=== PATIENT | male | born 1975 | race Caucasian/White ===

== ENCOUNTER 2017-02-14 18:01 | Observation (INO) | payer OTHER ==
[2017-02-14] MEDS ORDERED: Aspirin Low Dose CHEW TAB* 81 MG PO ONE (18:15)
[2017-02-14 18:44] LABS: Hematocrit 47 % (42-52); Hemoglobin 15.7 g/dl (14.0-18.0); Mean Corpuscular HGB Conc 34 g/dl (31-36); Mean Corpuscular Hemoglobin 30 pg (27-31); Mean Corpuscular Volume 88 fL (80-94); Mean Platelet Volume 8 um3 (7.4-10.4); Red Blood Count 5.27 10^6/ul (4.0-5.4); Red Cell Distribution Width 13 % (10.5-15); White Blood Count 9.5 10^3/ul (3.5-10.8)
[2017-02-14 19:07] LABS: Albumin 4.5 g/dL (3.2-5.2); BUN/Creatinine Ratio 13.8 (8-20); Calcium 9.3 mg/dL (8.6-10.3); EGFR African American 124.4 (>60); EGFR Non-African American 96.7 (>60); Globulin 2.9 g/dL (2-4); Potassium 3.8 mmol/L (3.5-5.0); Total Bilirubin 1.4 mg/dL (0.2-1.0); Total Protein 7.4 g/dL (6.4-8.9)
[2017-02-15] MEDS ORDERED: Acetaminophen TAB* 325 MG PO PRN (00:05)
[2017-02-15] MEDS ORDERED: Al Hydrox/Mg Hydrox/Simet LIQ* 30 ML UDC PO PRN (00:05)
[2017-02-15] MEDS ORDERED: Ondansetron INJ* 2 MG/ML VIAL IV PRN (00:05)
[2017-02-15] MEDS ORDERED: oxyCODONE/Acetamin 5/325 MG* TAB PO PRN (00:05)
[2017-02-15] MEDS ORDERED: Cyclobenzaprine TAB* 10 MG PO PRN (00:07)
[2017-02-15] MEDS ORDERED: Calcium Carbonate CHEW TAB* 500 MG (TUMS) PO PRN (00:07)
[2017-02-15 01:16] LABS: Troponin I 0.01 ng/mL (<0.04)
--- NOTE | 2017-02-15 01:26 | HP ---
CC: Eran Abraham MD * HISTORY AND PHYSICAL: DATE OF ADMISSION: 02/15/17 TIME OF EVALUATION: 0000. PRIMARY CARE PHYSICIAN: Eran Abraham MD CHIEF COMPLAINT: Chest pain. HISTORY OF PRESENT ILLNESS: This is a 41-year-old male with a past medical history of GERD, Dsouza's esophagus, and hiatal hernia, who presents to the emergency room, was having chest discomfort for the past week. He states that it comes and goes, nothing seems to make it better or worse and the pattern is unpredictable, does not seem to be associated with after eating. He states over the past few days, he has become more short of breath and it does not seem to come on with exertion either. He denies any upper respiratory symptoms, although he states he does have a slightly dry and sore throat. He was nauseous a few days ago, no vomiting, no diarrhea. No changes in his weight. He does state he had a stress test 7 years ago on a treadmill and had a hard time with that. He denies any worsening heart burn, he states that he changed his diet and taking supplements recently to help with his GERD symptoms and that has improved significantly. He did stop taking all his medications over the past week, because he has not been feeling well including his pantoprazole. Otherwise, remaining review of systems is negative. In the emergency room, the patient had labs and imaging and was concerned for acute coronary syndrome evaluation and was referred to the hospitalist service for further evaluation. The patient is now chest pain free. PAST MEDICAL HISTORY: 1. GERD. 2. Gastritis. 3. History of Dsouza's esophagus. 4. History of hiatal hernia. 5. History of peptic ulcer disease. 6. Chronic back pain. 7. History of laminectomy x3. 8. History of knee surgery. MEDICATIONS: Of note, the patient has not taken his medications for the past week. 1. Percocet 3 up to 5 times a day as needed for pain. 2. Gabapentin unclear on the mg, but he takes it 3 times a day. 3. Flexeril daily. 4. Pantoprazole. 5. Tums as needed. ALLERGIES: No known drug allergies. SOCIAL HISTORY: The patient lives at home with his and children. He is on disability. He quit smoking 7 years ago. At that time, he smoked a pack and a half a day for about 20 years. No alcohol use. No illicit drug use. His healthcare proxy is his , Alejandra. FAMILY HISTORY: His mother is alive, had bypass x2 starting at age 50. His father is alive and healthy. REVIEW OF SYSTEMS: Fourteen-point review of systems as mentioned, pertinent positives and negatives as mentioned in the HPI, otherwise negative. PHYSICAL EXAMINATION GENERAL: No acute distress, resting comfortably with his at the bedside. VITAL SIGNS: Temp 98.1, pulse rate 70, respiratory rate 16, oxygen saturation 98% on room air, blood pressure 128/87. HEENT: Head normocephalic. Pupils are equal and reactive, anicteric. Oropharynx: Mucous membranes are moist. Slight posterior erythema, no exudates. NECK: Supple. No lymphadenopathy. RESPIRATORY: Diminished breath sounds. No wheezes, rhonchi, or rales. CARDIAC: Regular rate and rhythm. No murmurs, rubs, or gallops. ABDOMEN: Soft, nontender, nondistended. EXTREMITIES: No clubbing, cyanosis, or edema. +2 DPs. NEUROLOGIC: Alert and oriented x3. No focal neurologic deficits. DIAGNOSTIC STUDIES/LAB DATA: White count 9.5, hemoglobin 15.7, hematocrit 47, platelets 284,000. D-dimer is less than 200. Sodium 136, potassium 3.8, chloride 104, bicarb 25, BUN 12, creatinine 0.87, glucose 129. Total bili is 1.4. Troponin 0 x2. Radiographic data: EKG shows normal sinus rhythm. No prior EKG to compare to. ASSESSMENT AND PLAN: This is a 41-year-old male with past medical history of gastroesophageal reflux disease and remote smoking use, who presents to the emergency room with chest pain off and on for the past week. Chest pain. Assessment: Unlikely related to cardiac origin. He has been off his medications for the past week. He has tried to wean himself off his pantoprazole. He has significant gastroesophageal reflux history, could be most likely related to that, but not unreasonable to rule him out with his family history and remote smoking history. Plan: We will admit him to telemetry, trend troponins, obtain lipid panel, continue on baby aspirin, and do a nuclear stress test. The patient states that he would not be able to go on the treadmill due to his back pain. CHRONIC MEDICAL PROBLEMS: 1. We will resume his home medications as prescribed. 2. Diet: Place the patient n.p.o. for his stress test. 3. DVT prophylaxis. The patient scores moderate risk, place on heparin subcu t.i.d. 4. Code status: Full code. PATIENT TIME: Greater than 50 minutes was spent doing the history and physical , more than half the time was spent in direct patient contact. [id number]/[facility] #: [id number] MARIA ANTONIA
[2017-02-15] MEDS ORDERED: Heparin VIAL(*) 5000 UNITS/ML VIAL (FIVE THOUSAND) SUBCUT SCH (06:00)
[2017-02-15] MEDS ORDERED: Omeprazole CAP* 20 MG PO SCH (06:00)
[2017-02-15] MEDS ORDERED: Gabapentin CAP(*) 100 MG PO SCH (09:00)
[2017-02-15] MEDS ORDERED: Aspirin EC Low Dose* 81 MG TAB.EC PO SCH (09:00)
[2017-02-15] MEDS ORDERED: Regadenoson* 0.4 MG/5 ML SYRINGE ONE (09:23)
[2017-02-15] MEDS ORDERED: Aminophylline IV* 25 MG/ML 10 ML VIAL ONE (09:23)
--- NOTE | 2017-02-15 11:11 | RAD ---
INDICATION: Chest pain COMPARISON: None TECHNIQUE: A single day SPECT protocol was utilized. Rest images were acquired following the intravenous injection of 10.5 millicuries of technetium 99m tetrofosmin. Pharmacologic stress images were acquired following the intravenous administration of 25.9 millicuries of technetium 99m tetrofosmin. FINDINGS: There is subtle decreased activity in the anterior wall near the base of the heart with stress. A small ischemic defect is not excluded. There are no additional apparent defects or stress-induced or fixed nature. The cardiac chamber size is normal. There are no wall motion abnormalities. The ejection fraction is calculated at 66 percent during stress. IMPRESSION: SUSPECTED ISCHEMIC DEFECT ANTERIOR WALL. NORMAL WALL MOTION AND EJECTION FRACTION. ASSESSMENT: INTERMEDIATE-RISK Based on imaging criteria from ACC/AHA 2002 Guideline Update for the Management of Patients With Chronic Stable Angina Table 23. Noninvasive Risk Stratification.
--- NOTE | 2017-02-15 11:39 | PN ---
Subjective Date of Service: 02/15/17 Interval History: Mr. Carter is a 41 yo male with a PMH of GERD, gastritis, and Dsouza's esophagus who presented to the ED last evening with concern for chest pain that has been off and on for about one week. He states that it is "discomfort, not really pain." He reports associated left shoulder and arm numbness. He cannot find any specific pattern to the pain but does report some SOB with some of the episodes. He is still able to complete his ADLs. He notes that one episode followed an incident where he was yelling at his daughter and felt like it could be anxiety in that instance. He also report that his most recent EGD showed resolution of gastritis and Dsouza's esophagus. He has tried to control his GERD with diet and stopped his pantoprazole but states, "sometimes I still need Tums." Overnight and this AM, patient reports feeling fine, denying CP, SOB, n/v or other symptoms of concern. Following his stress test, he reports "chest discomfort" that is all over his chest and rather variable. He feels as if it could be musculoskeletal from having to lay with his arms above his head. No other complaints. Telemetry: SR 60s-70s Family History: Unchanged from Admission Social History: Unchanged from Admission Past Medical History: Unchanged from Admission Objective Active Medications: Acetaminophen (Tylenol Tab*) 650 mg PO Q4H PRN PRN Reason: FEVER/PAIN Al Hydrox/Mg Hydrox/Simethicone (Maalox Plus*) 30 ml PO Q6H PRN PRN Reason: INDIGESTION Aspirin (Aspirin Ec Low Dose*) 81 mg PO DAILY [facility] Last Admin: 02/15/17 09:14 Dose: 81 mg Calcium Carbonate (Tums*) 500 mg PO Q4H PRN PRN Reason: INDIGESTION Cyclobenzaprine HCl (Flexeril Tab*) 10 mg PO BID PRN PRN Reason: SPASMS - BACK Gabapentin (Neurontin Cap(*)) 200 mg PO TID [facility] Last Admin: 02/15/17 09:13 Dose: 200 mg Heparin Sodium (Porcine) (Heparin Vial(*)) 5,000 units SUBCUT Q8HR [facility] Last Admin: 02/15/17 06:32 Dose: 5,000 units Omeprazole (Prilosec Cap*) 20 mg PO 0600 [facility] Last Admin: 02/15/17 06:31 Dose: 20 mg Ondansetron HCl (Zofran Inj*) 4 mg IV Q4H PRN PRN Reason: NAUSEA/VOMITING Oxycodone/Acetaminophen (Percocet 5/325 Tab*) 1 tab PO Q4H PRN PRN Reason: Pain Vital Signs 02/15/17 02/15/17 02/15/17 00:35 07:22 08:00 Temperature 97.8 F 98.0 F Pulse Rate 129 68 Respiratory 16 16 16 Rate Blood Pressure 99/58 121/69 (mmHg) O2 Sat by Pulse 97 96 Oximetry 02/15/17 09:13 Temperature Pulse Rate Respiratory 16 Rate Blood Pressure (mmHg) O2 Sat by Pulse Oximetry Oxygen Devices in Use Now: None Appearance: Young male patient, lying in bed, NAD Eyes: No Scleral Icterus Ears/Nose/Mouth/Throat: Clear Oropharnyx, Mucous Membranes Moist Neck: NL Appearance and Movements; NL JVP Respiratory: Symmetrical Chest Expansion and Respiratory Effort, Clear to Auscultation Cardiovascular: NL Sounds; No Murmurs; No JVD, RRR Abdominal: NL Sounds; No Tenderness; No Distention Extremities: No Edema, No Clubbing, Cyanosis Neurological: Alert and Oriented x 3, NL Muscle Strength and Tone Lines/Tubes/Other Access: Clean, Dry and Intact Peripheral IV Nutrition: Taking PO's Result Diagrams: 02/14/17 18:34 02/14/17 18:34 Additional Lab and Data: Lab Results 02/14/17 02/14/17 02/14/17 Range/Units 18:34 18:34 18:34 WBC 9.5 (3.5-10.8) 10^3/ul RBC 5.27 (4.0-5.4) 10^6/ul Hgb 15.7 (14.0-18.0) g/dl Hct 47 (42-52) % MCV 88 (80-94) fL MCH 30 (27-31) pg MCHC 34 (31-36) g/dl RDW 13 (10.5-15) % Plt Count 284 (150-450) 10^3/ul MPV 8 (7.4-10.4) um3 Neut % (Auto) 74.3 (38-83) % Lymph % (Auto) 19.9 L (25-47) % [place] % (Auto) 4.4 (1-9) % Eos % (Auto) 0.9 (0-6) % Baso % (Auto) 0.5 (0-2) % Absolute Neuts (auto) 7.0 (1.5-7.7) 10^3/ul Absolute Lymphs (auto) 1.9 (1.0-4.8) 10^3/ul Absolute Monos (auto) 0.4 (0-0.8) 10^3/ul Absolute Eos (auto) 0.1 (0-0.6) 10^3/ul Absolute Basos (auto) 0.1 (0-0.2) 10^3/ul Absolute Nucleated RBC 0 10^3/ul Nucleated RBC % 0 Sodium 136 (133-145) mmol/L Potassium 3.8 (3.5-5.0) mmol/L Chloride 104 (101-111) mmol/L Carbon Dioxide 25 (22-32) mmol/L Anion Gap 7 (2-11) mmol/L BUN 12 (6-24) mg/dL Creatinine 0.87 (0.67-1.17) mg/dL Est GFR ( Amer) 124.4 (>60) Est GFR (Non-Af Amer) 96.7 (>60) BUN/Creatinine Ratio 13.8 (8-20) Glucose 129 H (70-100) mg/dL Lactic Acid 1.3 (0.5-2.0) mmol/L Calcium 9.3 (8.6-10.3) mg/dL Total Bilirubin 1.40 H (0.2-1.0) mg/dL AST 21 (13-39) U/L ALT 32 (7-52) U/L Alkaline Phosphatase 52 (34-104) U/L Troponin I 0.00 (<0.04) ng/mL Total Protein 7.4 (6.4-8.9) g/dL Albumin 4.5 (3.2-5.2) g/dL Globulin 2.9 (2-4) g/dL Albumin/Globulin Ratio 1.6 (1-3) Assess/Plan/Problems-Billing Assessment: Mr. Carter is a 41 yo male with a PMH of GERD, Dsouza esophagus, gastritis, chronic back pain, and PUD who presented to the ED on 02/14/17 with chest pain. - Patient Problems (1) Chest pain Code(s): R07.9 - CHEST PAIN, UNSPECIFIED Comment: D-dimer negative, troponins unremarkable No significant EKG changes Stress test showed question of an anterior defect on nuclear imaging; discussed with Dr. Hyatt, who feels this is artifact, given the reported location of the defect. Suspect combination of gastrointestinal and anxiety related causes Education provided on diet and lowering risk factors. Outpatient f/u with PCP (2) GERD (gastroesophageal reflux disease) Code(s): K21.9 - GASTRO-ESOPHAGEAL REFLUX DISEASE WITHOUT ESOPHAGITIS Comment : With Dsouza esophagus, now resolved Patient recently stopped pantoprazole but states he will resume. Outpatient follow-up with PCP (3) History of gastritis Code(s): Z87.19 - PERSONAL HISTORY OF OTHER DISEASES OF THE DIGESTIVE SYSTEM Comment: Resolved, per pt Continue outpt follow-up (4) History of peptic ulcer disease Code(s): Z87.11 - PERSONAL HISTORY OF PEPTIC ULCER DISEASE Comment: Continue pantoprazole. (5) Chronic back pain Code(s): M54.9 - DORSALGIA, UNSPECIFIED; G89.29 - OTHER CHRONIC PAIN Comment: Continue gabapentin, cyclobenzaprine, prn Percocet. (6) DVT prophylaxis Comment: SQ heparin Status and Disposition: OBV admit. D/c to home.
[2017-02-15 11:52] LABS: HDL Cholesterol 44.6 mg/dL
[2017-02-15 13:55] VITALS: BP 119/69
--- NOTE | 2017-02-16 03:08 | DS ---
CC: Eran Abraham MD * MEDICINE DISCHARGE SUMMARY: DATE OF ADMISSION: 02/15/17 DATE OF DISCHARGE: 02/15/17 PROVIDER: Dory Kapoor NP ATTENDING PHYSICIAN: Dr. Olya Holcomb * (as dictated by Dory Kapoor NP) PRIMARY CARE PROVIDER: Eran Abraham MD PRIMARY DISCHARGE DIAGNOSIS: Chest pain. SECONDARY DISCHARGE DIAGNOSES: 1. Gastroesophageal reflux disease. 2. Gastritis. 3. History of Dsouza's esophagus. 4. History of hiatal hernia. 5. History of peptic ulcer disease. 6. Chronic back pain, status post lumbar laminectomy x3. HOME MEDICATIONS: 1. Pantoprazole 40 mg daily. 2. Fluocinonide cream 1 application topical at bedtime. 3. Cyclobenzaprine 10 mg daily. 4. Hydrocortisone 2.5% one application topical b.i.d.. 5. Ketoconazole per instructions. 6. Percocet 10/325 one tab q.4 hours p.r.n. 7. Gabapentin 600 mg t.i.d. HOSPITAL COURSE OF STAY: For full details, please refer to the H and P provided by Dr. Foy on 02/15/17. In summary, Mr. Carter is a 41-year-old male patient who presented to the emergency room with chest discomfort that has been occurring intermittently for the past week. The patient reports changing locations of the pain, cannot identify any aggravating or alleviating factors, and denies any activity intolerance. He does report one incident where the chest pain was exacerbated by yelling at his daughter and another incident where he became short of breath. It does not necessarily corresponding with exertion. He denies any recent upper respiratory infections or symptoms. He does state that he has stopped taking all of his medications recently, including his pantoprazole, as he has been trying to "go more natural." Here in the hospital, the patient's evaluation was mostly benign. He has a D- dimer of less than 200, which is negative. Troponins were 0, 0, 0.01 respectively. His LDL cholesterol is 121, total cholesterol of 184, HCL 44. EKG showed no ischemic ST or T-wave changes. The patient did undergo a stress test, which showed no EKG- induced by ischemia criteria. The patient's nuclear stress images were read with a suspected ischemic defect over the anterior wall. However, there is normal wall motion and ejection fraction. I did have Dr. Hyatt of Interventional cardiology review these images and he felt that this is likely a misread given that the patient's defect does not correspond with the coronary artery anatomy and, if there was a defect present in that region, there should also be evidence of distal ischemia, which is not present on the EKG portion of the stress test or the nuclear imaging. In later conversation following this stress test, the patient states that there might have been some anxiety playing into the event, as he does become anxious easily over things. He does report that he may also have some muscle aches around this area of the chest. The patient states that he has been trying to discontinue some of his medications and choose more holistic and less fatty foods. He has stopped some of his medications, including his pantoprazole, but states that he will probably start taking this again. He reports that he does have issues with persistent reflux. He states his most recent EGD showed that his gastritis had resolved as well as his Dsouza's esophagus. The patient was advised to follow up with his PCP and discuss continuation of his PPI, as well as any other concern the patient may have. CONCERNS AT DISCHARGE: Mr. Carter is discharged to home on 02/15/17. He is to follow up with his PCP. DIET: Heart healthy diet. ACTIVITY: As tolerated. CONDITION: Stable. DISPOSITION: To home. TIME SPENT: Time spent on this discharge was approximately 60 minutes. Again, this is only a brief summary of the patient's hospital course of stay. For full details, please refer to the full medical record. If you have any further questions or need further assistance, please feel free to contact me at [phone]. DORY KAPOOR, JULIANE [id number]/[facility] #: [id number] MARIA ANTONIA
== END 2017-02-15 15:07 | disposition home or self-care (01) ==
LOC: ED 18:01 → MEDTELE 02-15 00:05
PROVIDERS: ADMIT Pediatrics; ATTEND Internal Medicine
DX: R07.9 Chest pain, unspecified (principal); R06.02 Shortness of breath; K21.9 Gastro-esophageal reflux disease without esophagitis; K29.70 Gastritis, unspecified, without bleeding; M54.9 Dorsalgia, unspecified; F41.9 Anxiety disorder, unspecified; Z79.899 Other long term (current) drug therapy; Z87.891 Personal history of nicotine dependence
CPT/HCPCS: 36415; 78452; 80053; 80061; 83605; 84484; 85025; 85379; 93005; 93017; 96374; 99282; A9270-GY; A9502; G0378; J0280; J1644; J2785

== ENCOUNTER 2017-06-25 02:25 | Emergency (ER) | payer MEDICARE, OTHER ==
[2017-06-25 03:18] LABS: Comments Flag Yes; Hematocrit 45 % (42-52); Hemoglobin 15.3 g/dl (14.0-18.0); Mean Corpuscular HGB Conc 34 g/dl (31-36); Mean Corpuscular Hemoglobin 29 pg (27-31); Mean Corpuscular Volume 86 fL (80-94); Mean Platelet Volume 8 um3 (7.4-10.4); Red Blood Count 5.25 10^6/ul (4.0-5.4); Red Cell Distribution Width 13 % (10.5-15); White Blood Count 12.7 10^3/ul (3.5-10.8)
[2017-06-25 03:19] LABS: Add Diff/Slide Review? Slide Review Added
[2017-06-25 03:32] LABS: Albumin 5.1 g/dL (3.2-5.2); BUN/Creatinine Ratio 15.5 (8-20); Calcium 9.8 mg/dL (8.6-10.3); EGFR African American 89.2 (>60); EGFR Non-African American 69.4 (>60); Globulin 2.8 g/dL (2-4); Potassium 4.1 mmol/L (3.5-5.0); Total Protein 7.9 g/dL (6.4-8.9)
[2017-06-25 04:01] VITALS: BP 138/82
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
--- NOTE | 2017-06-25 07:57 | RAD ---
INDICATION: Short of breath COMPARISON: September 24, 2015 TECHNIQUE: PA and lateral dual-energy views were obtained. FINDINGS: Bones/Soft Tissues: There are no acute bony findings. Cardiomediastinal: The cardiomediastinal silhouette is normal. Lungs: There are no infiltrates. Pleura: There are no pleural effusions. Other: None IMPRESSION: NORMAL CHEST.
== END 2017-06-25 04:02 | disposition home or self-care (01) ==
LOC: ED 02:25
DX: T59.811A Toxic effect of smoke, accidental (unintentional), initial encounter (principal); J70.5 Respiratory conditions due to smoke inhalation; R07.9 Chest pain, unspecified; R06.02 Shortness of breath; R42 Dizziness and giddiness; Y92.9 Unspecified place or not applicable
CPT/HCPCS: 36415; 71020; 80053; 82375; 84484; 85025; 93005; 99282

== ENCOUNTER 2018-12-12 19:38 | Emergency (ER) | payer BC, MEDICARE, MEDICAID ==
--- OUTSIDE RECORDS SUMMARY | 2018-12-12 20:26 | XMS REPORT | Continuity of Care Document ---
:1975 External Reference #:[id number] Author Name Malia Nunez Care Team Providers Name Role Phone Eran Abraham MD Care Team Information Rail Switchman Unavailable Eran Abraham MD Primary Care Physician Unavailable Payers Date Identification Numbers Payment Provider Subscriber Policy Number: [id number] ALLI Carter PayID: [id number] [address] [address] [place] [address] Policy Number: [id number] Medicare Papi Izquierdo Raul LERNER PayID: [id number] [address] [place] [address] Policy Number: [id number] Medicaid Papi Jassocb LERNER PayID: [id number] [address] [place] [address] Family History Date Family Member(s) Observation Comments Father 66 Father Unremarkable Mother Unremarkable Mother 67 Social History Type Date Description Comments Sex Unknown Tobacco Use Start: Unknown End: Used To Smoke Cigarettes But Unknown Quit. ETOH Use Rare Use Of Alcohol Recreational Drug Use Has Used In Past Allergies, Adverse Reactions, Alerts Description No Known Drug Allergies Medications Active Medications SIG Qnty Indications Ordering Provider Date Vitamin D3 Unknown 5000Unit Capsules Cyanocobalamin Unknown 2500mcg Tablets Sub Cyclobenzaprine HCL one tab at at Unknown 10mg bedtime Tablets Famotidine 1/day Unknown 40mg Tablets Eql Milk Thistle Unknown 175mg Capsules Dandelion Root Unknown 520mg Capsules Oxycodone-Acetaminophen 1 by mouth every Unknown 6 hours as 10-325mg Tablets needed pain Probiotic Unknown Capsules Vitamin C Unknown 500mg Tablets Vital Signs Date Vital Result Comment 12/01/2018 11:52am Weight 199.00 lb Height 70 inches 5'10" BMI (Body Mass Index) 28.6 kg/m2 BP Systolic 136 mmHg BP Diastolic 96 mmHg Heart Rate 93 /min O2 % BldC Oximetry 98 % Body Temperature 98.5 F Pain Level 0
[2018-12-12] MEDS ORDERED: DOXYcycline CAP(*) 100 MG PO ONE (20:46)
--- NOTE | 2018-12-12 20:49 | ED ---
Skin Complaint - HPI Summary HPI Summary: Patient complains of finding tick on medial left thigh today. Patient states he removed it himself and showed a picture indicating protected been removed. Redness at site of tick bite. Denies any other symptoms pain or injury. Unaware how long tachycardia been there. - History of Current Complaint Chief Complaint: EDSoftTissueLowExtr Time Seen by Provider: 12/12/18 20:37 Stated Complaint: TICK WAS IN MY LEG/BULLSEYE ON SKIN PER PT Hx Obtained From: Patient Onset/Duration: Started Hours Ago Skin Exposure Onset/Duration: Hours Ago Timing: Constant Onset Severity: Mild Current Severity: Mild Pain Intensity: 1 Pain Scale Used: 0-10 Numeric Skin Location: Discrete Aggravating Symptom(s): Nothing Alleviating Symptom(s): Nothing Associated Signs & Symptoms: Negative - Allergy/Home Medications Allergies/Adverse Reactions: Allergies Allergy/AdvReac Type Severity Reaction Status Date / Time No Known Allergies Allergy Verified 12/12/18 19:53 PMH/Surg Hx/FS Hx/Imm Hx Endocrine/Hematology History: Denies: Hx Diabetes, Hx Thyroid Disease Cardiovascular History: Denies: Hx Hypertension, Hx Pacemaker/ICD Respiratory History: Denies: Hx Asthma, Hx Chronic Obstructive Pulmonary Disease (COPD) GI History: Reports: Hx Gastroesophageal Reflux Disease - YOUNGBLOOD'S ESOPHAGUS, Hx Hiatal Hernia, Hx Ulcer - H-PYLORUS HX 07/2013, HX OF GASTRITIS, Other GI Disorders - ABDOMINAL PAINS AND ACHES, COLONOSCOPY Musculoskeletal History: Reports: Other Musculoskeletal History - SCIATIC PROBLEMS Sensory History: Denies: Hx Contacts or Glasses, Hx Hearing Aid Opthamlomology History: Denies: Hx Contacts or Glasses Neurological History: Reports: Hx Headaches - OCCASIONAL TENSION HEADACHE Psychiatric History: Denies: Hx Panic Disorder - Surgical History Surgery Procedure, Year, and Place: 1998&2010 LAMINECTOMY L4- L5-S1 , [facility]. 2013 ENDOSCOPY, [facility]. 2013 COLONOSCOPY, [facility] Hx Anesthesia Reactions: No - Immunization History Date of Tetanus Vaccine: UTD Date of Influenza Vaccine: NO Infectious Disease History: No Infectious Disease History: Denies: Hx Clostridium Difficile, Hx Hepatitis, Hx Human Immunodeficiency Virus (HIV), Hx of Known/Suspected MRSA, Hx Shingles, Hx Tuberculosis, Traveled Outside the in Last 30 Days Comment Only: History Other Infectious Disease - hpylori - Family History Known Family History: Positive: Cardiac Disease - Bypass surgery - mother - Social History Alcohol Use: Occasionally Alcohol Amount: 1 drink in 6 months Hx Substance Use: Yes Substance Use Type: Reports: Marijuana, Prescribed Substance Use Comment - Amount & Last Used: RARE Hx Tobacco Use: Yes Smoking Status (MU): Former Smoker Type: Cigarettes Amount Used/How Often: 1.5 PPD Length of Time of Smoking/Using Tobacco: 21 YEARS Have You Smoked in the Last Year: No Review of Systems Constitutional: Negative Eyes: Negative ENT: Negative Cardiovascular: Negative Respiratory: Negative Gastrointestinal: Negative Genitourinary: Negative Musculoskeletal: Negative Skin: Other Neurological: Negative Psychological: Normal All Other Systems Reviewed And Are Negative: Yes Physical Exam - Summary Physical Exam Summary: Small area of ecchymosis surrounded by erythema and medial left thigh. No bull' s-eye rash, purulence or abscess noted. Nontender to palpation. Triage Information Reviewed: Yes Vital Signs On Initial Exam: Initial Vitals Temp Pulse Resp BP Pulse Ox 99.1 F 87 15 132/82 97 12/12/18 19:50 12/12/18 19:50 12/12/18 19:50 12/12/18 19:50 12/12/18 19:50 Vital Signs Reviewed: Yes Appearance: Positive: Well-Appearing Skin: Positive: Warm Head/Face: Positive: Normal Head/Face Inspection Eyes: Positive: Normal Neck: Positive: Supple Respiratory/Lung Sounds: Positive: Clear to Auscultation Cardiovascular: Positive: Normal Abdomen Description: Positive: Nontender Musculoskeletal: Positive: Normal Neurological: Positive: Normal Psychiatric: Positive: Normal AVPU Assessment: Alert - Carmine Coma Scale Best Eye Response: 4 - Spontaneous Best Motor Response: 6 - Obeys Commands Best Verbal Response: 5 - Oriented Coma Scale Total: 15 Diagnostics - Vital Signs Vital Signs Temp Pulse Resp BP Pulse Ox 12/12/18 19:50 99.1 F 87 15 132/82 97 - Laboratory Lab Statement: Any lab studies that have been ordered have been reviewed, and results considered in the medical decision making process. Course/Dx - Course Course Of Treatment: Patient complains of finding tick on medial left thigh today. Patient states he removed it himself and showed a picture indicating protected been removed. Redness at site of tick bite. Denies any other symptoms pain or injury. Unaware how long tick had been there. Physical exam: Small area of ecchymosis surrounded by erythema and medial left thigh. No bull' s-eye rash, purulence or abscess noted. Nontender to palpation. Vital signs within normal limits. Doxycycline 200 mg by mouth 1. - Diagnoses Provider Diagnoses: Tick bite Discharge - Sign-Out/Discharge Documenting (check all that apply): Patient Departure Patient Received Moderate/Deep Sedation with Procedure: No - Discharge Plan Condition: Stable Disposition: HOME Patient Education Materials: Lyme Disease (ED), Tick Bite (ED) Referrals: Eran Abraham MD [Primary Care Provider] - Additional Instructions: Follow-up with primary care or return to the ED for any concerning symptoms. - Billing Disposition and Condition Condition: STABLE Disposition: Home
[2018-12-12 21:05] VITALS: BP 149/86
== END 2018-12-12 21:03 | disposition home or self-care (01) ==
LOC: ED 19:38
DX: S70.362A Insect bite (nonvenomous), left thigh, initial encounter (principal); W57.XXXA Bitten or stung by nonvenomous insect and other nonvenomous arthropods, initial encounter; Y92.9 Unspecified place or not applicable; K21.9 Gastro-esophageal reflux disease without esophagitis; Z87.891 Personal history of nicotine dependence
CPT/HCPCS: 99281; A9270-GY

== ENCOUNTER 2019-04-05 15:13 | Emergency (ER) | payer BC, MEDICARE, MEDICAID ==
[2019-04-05 15:47] LABS: ABS Eosinophils 0.1 10^3/ul (0-0.6); ABS Lymphocytes 1.5 10^3/ul (1.0-4.8); ABS Monocytes 0.4 10^3/ul (0-0.8); ABS Neutrophils 4.8 10^3/ul (1.5-7.7); Eosinophil % 0.9 %; Hematocrit 44 % (42-52); Hemoglobin 14.7 g/dL (14.0-18.0); Lymphocyte % 22.2 %; Mean Corpuscular HGB Conc 34 g/dL (31-36); Mean Corpuscular Hemoglobin 30 pg (27-31); Mean Corpuscular Volume 87 fL (80-94); Mean Platelet Volume 7.3 fL (7.4-10.4); Nucleated Red Blood Cells % 0.1; Platelet Count 264 10^3/uL (150-450); Red Blood Count 4.98 10^6 /uL (4.18-5.48); Red Cell Distribution Width 13 % (10-15); White Blood Count 6.8 10^3/uL (3.5-10.8)
[2019-04-05 16:00] LABS: INR 0.99 (0.82-1.09)
[2019-04-05 16:25] LABS: Albumin 4.6 g/dL (3.2-5.2); Albumin/Globulin Ratio 1.8 (1-3); BUN/Creatinine Ratio 16.5 (8-20); Calcium 9.3 mg/dL (8.6-10.3); EGFR Non-African American 90.9 (>60); Globulin 2.6 g/dL (2-4); Potassium 4.3 mmol/L (3.5-5.0); Total Bilirubin 1.5 mg/dL (0.2-1.0); Total Protein 7.2 g/dL (6.4-8.9)
--- NOTE | 2019-04-05 16:54 | ED ---
HPI Chest Pain - HPI Summary HPI Summary: 43 year old M [place] [facility] by complains of intermittent episodes of mid sternal chest pain, described as pressure, lasting hours each episode, since this afternoon. Symptoms aggravated by exertion. Symptoms alleviated by nothing. Patient states that his symptoms have worsened in the last 1.5-2 weeks. Patient states he was seen by early morning babysitter for his symptoms, and was evaluated for sleep apnea on 04/02/19. Patient states that his symptoms come on mostly when he is exerting himself. Several days ago, patient states he was digging a hole and developed chest pain and shortness of breath. Yesterday, patient was digging a hole and did not develop chest pain or shortness of breath. Today, patient was moving blocks with his daughter, doing some digging, and did not develop symptoms. Patient states that after doing this, he walked approximately 300 feet, and developed symptoms with associated left-sided neck pain. Patient currently has no pain, but notes discomfort. PMHx: esophagitis. Denies hx hypertension, diabetes, hypercholesterolemia. Last stress test 1.5-2 years ago which was normal. Patient states he has "breathing issues." Patient states he has been recovering from tonsillectomy that he had on 02/07/19. Surgical hx: 1 knee surgery, tonsillectomy, 3 lower back surgeries. Patient states he takes Percocet. Patient states he goes to pain clinic every 6 weeks. Patient states that when he goes to the pain clinic, he gets trigger points. Patient states that after the last 3 visits to the pain clinic, he gets episodes of rapid breathing which lasted for several seconds then resolved. Denies Fhx family members having a myocardial infaraction at his age. FHx: diabetes, hypoglycemia. Quit smoking 9 years ago. Drinks alcohol rarely. Denies drugs. - History of Current Complaint Chief Complaint: EDChestPainROMI Time Seen by Provider: 04/05/19 16:31 Hx Obtained From: Patient Onset/Duration: Started Weeks Ago, Resolved Timing: Intermittent, Lasting Hours Current Severity: None Pain Intensity: 0 Pain Scale Used: 0-10 Numeric Chest Pain Location: Mid Sternal Character: Pressure/Squeezing Aggravating Factor(s): Exertion Alleviating Factor(s): Nothing Associated Signs and Symptoms: Positive: Shortness of Breath - Allergy/Home Medications Allergies/Adverse Reactions: Allergies Allergy/AdvReac Type Severity Reaction Status Date / Time No Known Allergies Allergy Verified 12/12/18 19:53 PMH/Surg Hx/FS Hx/Imm Hx Endocrine/Hematology History: Denies: Hx Diabetes, Hx Thyroid Disease Cardiovascular History: Denies: Hx Hypercholesterolemia, Hx Hypertension, Hx Pacemaker/ICD Respiratory History: Denies: Hx Asthma, Hx Chronic Obstructive Pulmonary Disease (COPD) GI History: Reports: Hx Gastroesophageal Reflux Disease - YOUNGBLOOD'S ESOPHAGUS, Hx Hiatal Hernia, Hx Ulcer - H-PYLORUS HX 07/2013, HX OF GASTRITIS, Other GI Disorders - ABDOMINAL PAINS AND ACHES, COLONOSCOPY Musculoskeletal History: Reports: Other Musculoskeletal History - SCIATIC PROBLEMS Sensory History: Denies: Hx Contacts or Glasses, Hx Hearing Aid Opthamlomology History: Denies: Hx Contacts or Glasses Neurological History: Reports: Hx Headaches - OCCASIONAL TENSION HEADACHE Psychiatric History: Denies: Hx Panic Disorder - Surgical History Surgery Procedure, Year, and Place: 1998&2010 LAMINECTOMY L4- L5-S1 [address] 2013 ENDOSCOPY, [facility]. 2013 COLONOSCOPY, [facility]. 02/07/19 tonsillectomy Hx Anesthesia Reactions: No - Immunization History Date of Tetanus Vaccine: UTD Date of Influenza Vaccine: NO Infectious Disease History: No Infectious Disease History: Denies: Hx Clostridium Difficile, Hx Hepatitis, Hx Human Immunodeficiency Virus (HIV), Hx of Known/Suspected MRSA, Hx Shingles, Hx Tuberculosis, Traveled Outside the in Last 30 Days Comment Only: History Other Infectious Disease - hpylori - Family History Known Family History: Positive: Cardiac Disease - Bypass surgery - mother - Social History Alcohol Use: Occasionally Alcohol Amount: 1 drink in 6 months Hx Substance Use: Yes Substance Use Type: Reports: Marijuana, Prescribed Substance Use Comment - Amount & Last Used: RARE Hx Tobacco Use: Yes Smoking Status (MU): Former Smoker Type: Cigarettes Amount Used/How Often: 1.5 PPD Length of Time of Smoking/Using Tobacco: 21 YEARS Have You Smoked in the Last Year: No Review of Systems Positive: Chest Pain Positive: Shortness Of Breath All Other Systems Reviewed And Are Negative: Yes Physical Exam - Summary Physical Exam Summary: VITAL SIGNS: Reviewed. GENERAL: Patient is a well-developed and nourished MALE who is lying comfortable in the stretcher. Patient is not in any acute respiratory distress. HEAD AND FACE: No signs of trauma. No ecchymosis, hematomas or skull depressions. No sinus tenderness. EYES: PERRLA, EOMI x 2, No injected conjunctiva, no nystagmus. EARS: Hearing grossly intact. Ear canals and tympanic membranes are within normal limits. MOUTH: Oropharynx within normal limits. NECK: Supple, trachea is midline, no adenopathy, no JVD, no carotid bruit, no c- spine tenderness, neck with full ROM. CHEST: Symmetric, no tenderness at palpation. LUNGS: Clear to auscultation bilaterally. No wheezing or crackles. CVS: Regular rate and rhythm, S1 and S2 present, no murmurs or gallops appreciated. ABDOMEN: Soft, non-tender. No signs of distention. No rebound, no guarding, and no masses palpated. Bowel sounds are normal. EXTREMITIES: FROM in all major joints, no edema, no cyanosis or clubbing. NEURO: Alert and oriented x 3. No acute neurological deficits. Speech is normal and follows commands. SKIN: Dry and warm. Triage Information Reviewed: Yes Vital Signs On Initial Exam: Initial Vitals Temp Pulse Resp BP Pulse Ox 98.4 F 80 18 147/79 99 04/05/19 15:15 04/05/19 15:15 04/05/19 15:15 04/05/19 15:15 04/05/19 15:15 Vital Signs Reviewed: Yes Diagnostics - Vital Signs Vital Signs Temp Pulse Resp BP Pulse Ox 04/05/19 15:15 98.4 F 80 18 147/79 99 - Laboratory Lab Results: Lab Results 04/05/19 04/05/19 04/05/19 Range/Units 15:38 15:38 15:38 WBC 6.8 (3.5-10.8) 10^3/uL RBC 4.98 (4.18-5.48) 10^6 /uL Hgb 14.7 (14.0-18.0) g/dL Hct 44 (42-52) % MCV 87 (80-94) fL MCH 30 (27-31) pg MCHC 34 (31-36) g/dL RDW 13 (10-15) % Plt Count 264 (150-450) 10^3/uL MPV 7.3 L (7.4-10.4) fL Neut % (Auto) 70.8 % Lymph % (Auto) 22.2 % Spencer % (Auto) 5.7 % Eos % (Auto) 0.9 % Baso % (Auto) 0.4 % Absolute Neuts (auto) 4.8 (1.5-7.7) 10^3/ul Absolute Lymphs (auto) 1.5 (1.0-4.8) 10^3/ul Absolute Monos (auto) 0.4 (0-0.8) 10^3/ul Absolute Eos (auto) 0.1 (0-0.6) 10^3/ul Absolute Basos (auto) 0.0 (0-0.2) 10^3/ul Absolute Nucleated RBC 0.0 10^3/ul Nucleated RBC % 0.1 INR (Anticoag Therapy) 0.99 (0.82-1.09) Sodium 139 (135-145) mmol/L Potassium 4.3 (3.5-5.0) mmol/L Chloride 106 (101-111) mmol/L Carbon Dioxide 27 (22-32) mmol/L Anion Gap 6 (2-11) mmol/L BUN 15 (6-24) mg/dL Creatinine 0.91 (0.67-1.17) mg/dL Est GFR ( Amer) 110.0 (>60) Est GFR (Non-Af Amer) 90.9 (>60) BUN/Creatinine Ratio 16.5 (8-20) Glucose 99 (70-100) mg/dL Calcium 9.3 (8.6-10.3) mg/dL Total Bilirubin 1.50 H (0.2-1.0) mg/dL AST 20 (13-39) U/L ALT 32 (7-52) U/L Alkaline Phosphatase 60 (34-104) U/L Troponin I 0.00 (<0.04) ng/mL Total Protein 7.2 (6.4-8.9) g/dL Albumin 4.6 (3.2-5.2) g/dL Globulin 2.6 (2-4) g/dL Albumin/Globulin Ratio 1.8 (1-3) Result Diagrams: 04/05/19 15:38 04/05/19 15:38 Lab Statement: Any lab studies that have been ordered have been reviewed, and results considered in the medical decision making process. - Radiology Chest x-ray Radiology Interpretation Completed By: Radiologist Summary of Radiographic Findings: No evidence for acute intrathoracic disease. ED physician has reviewed this report. - EKG 1516 Cardiac Rate: NL - 68 BPM EKG Rhythm: Sinus Rhythm Summary of EKG Findings: Sinus rhythm [address] Elevations. Q wave in V3 Re-Evaluation - Re-Evaluation First Eval Re-Evaluation Time: 18:43 Comment: patient informed of lab and imaging results. discussed disposition plan. patient is agreeable to discharge Chest Pain Course/Dx - Course Assessment/Plan: This patient is a 43-year-old male who presents to the emergency department with a chief complaint of having shortness of breath and chest pain. Patient reports that the chest pain is not associated with exertion. Patient has had extensive workup with a stress test and a treadmill and also a chemical stress test which was negative. The patient also had a PFT which he reports that were normal. Blood test results are found to be within normal limits. Troponin 1 is 0.00. EKG: Normal sinus rhythm no ST elevations. Inverted T wave in V3. Chest x-ray impression: No evidence for acute intrathoracic disease. Heart score is 0 and ROSS score is 0. Second troponin is 0.00. I offered patient Toradol for pain but he declined since symptoms have resolved. Patient reports that all symptoms have resolved. Because the patient has no significant comorbidities and no family history of cardiovascular disease at his age, the patient will be discharged home with follow up of PMD. I discussed all the findings and test results with the patient. Patient was instructed to return to the emergency room immediately if any of the symptoms return or worsens. Patient understands and agrees. Plan of care was discussed with the patient and patient understands and agrees. All questions were answered at patient satisfaction. There were no further complaints or concerns. PE before discharge: CVS: S1 and S2 present. No murmurs appreciated. Abdominal exam before discharge: Soft, non-tender. No signs of distention. No rebound no guarding, and no masses palpated. Bowel sounds are normal. Patient is alert and oriented x 3. Patient is hemodynamically stable. - Chest Pain Differential Diagnosis/HQI/PQRI: Acute CO, ACS, Angina, CHF, Chest Wall, GI Disease, Lower Respiratory Infection, Pulmonary Edema - Diagnoses Provider Diagnoses: Atypical chest pain Discharge ED - Sign-Out/Discharge Documenting (check all that apply): Patient Departure - Discharge Patient Received Moderate/Deep Sedation with Procedure: No - Discharge Plan Condition: Stable Disposition: HOME Patient Education Materials: Chest Pain (ED) Referrals: Eran Abraham MD [Primary Care Provider] - 3 Days Additional Instructions: Follow up with your primary care provider in 3 days. RETURN TO EMERGENCY DEPARTMENT FOR NEW OR WORSENING SYMPTOMS. - Billing Disposition and Condition Condition: STABLE Disposition: Home - Attestation Statements Document Initiated by Scribe: Yes Documenting Scribe: Noreen Peters Provider For Whom Vilma is Documenting (Include Credential): Dallas Beverly MD Scribe Attestation: Noreen Monique, scribed for Dallas Beverly MD on 04/09/19 at 1136. Scribe Documentation Reviewed: Yes Provider Attestation: The documentation as recorded by the scribeNoreen accurately reflects the service I personally performed and the decisions made by me, Dallas Beverly MD Status of Scribe Document: Viewed
[2019-04-05] MEDS: Ketorolac *IM* INJ* 60 MG/2 ML VIAL IM ONE ×2 (18:10→18:11)
--- OUTSIDE RECORDS SUMMARY | 2019-04-05 18:40 | XMS REPORT | Continuity of Care Document ---
:1975 External Reference #:[id number] Author Name Harsha Lyle M.D. Address [address] [place] [address] Care Team Providers Name Role Phone Eran Abraham MD Care Team Information Inventory Controller [phone] Problems Description No Information Available Social History Type Date Description Comments Sex Unknown Tobacco Use Start: Unknown End: Used To Smoke Cigarettes But Unknown Quit. ETOH Use Rare Use Of Alcohol Recreational Drug Use Has Used In Past Allergies, Adverse Reactions, Alerts Description No Known Drug Allergies Medications Active Medications SIG Qnty Indications Ordering Date Provider Lidocaine Viscous HCL 5 milliliters four 200ml Harsha Lyle, 02/07/2019 2% times daiy as M.D. Solution needed for pain Ibuprofen 30 milliliters by 473ml Harsha Lyle, 02/03/2019 100mg/5ML mouth every 6 M.D. Suspension hours as needed pain Acetaminophen 20 milliliters by 420ml Harsha Lyle, 02/03/2019 160mg/5ML mouth every 6 M.D. Suspension hours for pain please cancel Dexamethasone 2 by mouth post op 2tabs Harsha Lyle, 02/03/2019 4mg Tablets day 3 M.D. Vitamin D3 Unknown 5000Unit Capsules Cyanocobalamin Unknown 2500mcg Tablets Sub Cyclobenzaprine HCL one tab at at Unknown 10mg bedtime Tablets Famotidine 1/day Unknown 40mg Tablets Oxycodone-Acetaminophen 1 by mouth every 6 Unknown hours as needed 10-325mg Tablets pain Probiotic Unknown Capsules Vitamin C Unknown 500mg Tablets Immunizations Description No Information Available Vital Signs Date Vital Result Comment 02/16/2019 1:03pm Weight 199.00 lb Height 70 inches 5'10" BMI (Body Mass Index) 28.6 kg/m2 BP Systolic 122 mmHg BP Diastolic 87 mmHg Heart Rate 79 /min O2 % BldC Oximetry 97 % Body Temperature 98.4 F Harrison Score 16 Neck Circumference in inches 15.5 Pain Level 8 12/01/2018 11:52am Weight 199.00 lb Height 70 inches 5'10" BMI (Body Mass Index) 28.6 kg/m2 BP Systolic 136 mmHg BP Diastolic 96 mmHg Heart Rate 93 /min O2 % BldC Oximetry 98 % Body Temperature 98.5 F Pain Level 0 Results Test Date Facility Test Result H/L Range Note Laboratory test 02/07/2019 [facility] SEE RESULT 1 , [address] [place] [address] [phone] 1 [id number] 2 SEE RESULT BELOW Name: PAPI CARTER SR : [address]: Harsha Lyle MD Acct: [id number] Unit: [id number] AGE: 43 Location: [facility] Re02/07/19 SEX: M Status: REG REF SPEC: [id number] MEGHANN: 02/07/19-[address]: Harsha Lyle MD REQ: [id number] RECD: 02/07/19 STATUS: SOUT _ ORDERED: LEVEL 3/2 COMMENTS: [id number] FINAL DIAGNOSIS 1. Tonsil, right, tonsillectomy: -- Benign tonsillar tissue with reactive lymphoid hyperplasia. 2. Tonsil, left, tonsillectomy: -- Benign tonsillar tissue with reactive lymphoid hyperplasia. -- Colonization biopsy actinomyces. CLINICAL HISTORY No history given. GROSS DESCRIPTION 1. The specimen is received in formalin labeled, Right Tonsil, and consists of a 3.5 x 2.7 x 2.0 cm mottled brown pink cerebriform to markedly eroded and focally cauterized tonsil. The cut surface is glistening vernon-pink with predominantly normal crypts. The specimen is inked, serially sectioned and account retention representative sections are submitted in one cassette. 2. The specimen is received in formalin labeled, Left Tonsil, and consists of a 4.0 x 2.2 x 1.6 cm vernon-pink cerebriform to cavernous focally cauterized tonsil. The cut surface is glistening vernon-pink with predominantly normal focally encapsulated crypts. The specimen is inked, serially sectioned and submitted entirely in one cassette. Signed by and Reported on: Renate Pedraza MD 02/09/19 1458 END OF REPORT DEPARTMENT OF PATHOLOGY, [address] [place] [address] Yaya Schmitz M.D. Director [facility] # [id number] Procedures Date Code Description Status 02/07/2019 14941 T & A, Age 12 Or Over Completed 02/07/2019 25820 Septoplasty Completed 02/07/2019 83770 Submucous Resect.Turb.Par Or Comp Completed 02/07/2019 00250 Anesthesia, Intraoral Surgery Not Otherwise Spec Completed 12/01/2018 02559 Fiberoptic Laryngoscopy,Diag. Completed Medical Devices Description No Information Available Encounters Type Date Location Provider Dx Diagnosis Office Visit 12/01/2018 [facility] Harsha Lyle M.D. J34.2 Deviated nasal 12:00p septum J34.3 Hypertrophy of nasal turbinates R06.83 Snoring J35.1 Hypertrophy of tonsils Assessments Date Code Description Provider 02/16/2019 R06.83 Snoring Harsha Lyle M.D. 02/07/2019 J34.2 Deviated nasal septum Tramaine Pla MD 02/07/2019 J34.2 Deviated nasal septum Harsha Lyle M.D. 02/07/2019 J34.3 Hypertrophy of nasal turbinates Tramaine Pal MD 02/07/2019 J34.3 Hypertrophy of nasal turbinates Harsha Lyle M.D. 02/07/2019 J35.3 Hypertrophy of tonsils with hypertrophy of Tramaine Pal MD adenoids 02/07/2019 J35.3 Hypertrophy of tonsils with hypertrophy of Harsha Lyle M.D. adenoids 12/01/2018 J34.2 Deviated nasal septum Harsha Lyle M.D. 12/01/2018 J34.3 Hypertrophy of nasal turbinates Harsha Lyle M.D. 12/01/2018 R06.83 Snoring Harsha Lyle M.D. 12/01/2018 J35.1 Hypertrophy of tonsils Harsha Lyle M.D. Plan of Treatment No Information Available Functional Status Description No Information Available Mental Status Description No Information Available Referrals Refer to Reason for Referral Status Appt Date Harsha Lyle M.D. NO AUTH REQ PER LETTER Created [address] [place], [place] [id number] [phone]
--- OUTSIDE RECORDS SUMMARY | 2019-04-05 18:40 | XMS REPORT | Continuity of Care Document ---
:1975 External Reference #:[id number] Author Name Harsha Lyle M.D. (transmitted by agent of provider Malia Nunez) Address [address] [place] [address] Care Team Providers Name Role Phone Eran Abraham MD Care Team Information Director Distribution [phone] Problems Description No Information Available Social History [...] Oximetry 97 % Body Temperature 98.4 F Pain Level 8 12/01/2018 11:52am Weight 199.00 lb Height 70 inches 5'10" BMI (Body Mass Index) 28.6 kg/m2 BP Systolic 136 mmHg BP Diastolic 96 mmHg Heart Rate 93 /min O2 % BldC Oximetry 98 % Body Temperature 98.5 F Pain Level 0 Results Test Date Facility Test Result H/L Range Note Laboratory test 02/07/2019 [facility] SEE RESULT 1 , [address] [place] [address] [phone] 1 [id number] 2 SEE RESULT BELOW Name: PAPI CARTER SR : [address]: Harsha Lyle MD Acct: [id number] Unit: [id number] AGE: 43 Location: [facility] Re02/07/19 SEX: M Status: REG REF SPEC: [id number] MEGHANN: 02/07/19-[address]: Harsha Lyle MD REQ: [id number] RECD: 02/07/19 STATUS: SOUT _ ORDERED: LEVEL 3/2 COMMENTS: [id number] FINAL DIAGNOSIS 1. Tonsil, right, tonsillectomy: -- [...] The specimen is inked, serially sectioned and customer engagement representative sections are submitted in one cassette. [...] 1458 END OF REPORT DEPARTMENT OF PATHOLOGY, [address] [place] [address] Yaya Schmitz M.D. Director [facility] # [id number] Procedures Date Code Description Status 02/07/2019 65131 T & A, Age 12 Or Over Completed 02/07/2019 61650 Septoplasty Completed 02/07/2019 95952 Submucous Resect.Turb.Par Or Comp Completed 02/07/2019 01161 Anesthesia, Intraoral Surgery Not Otherwise Spec Completed 12/01/2018 20760 Fiberoptic Laryngoscopy,Diag. Completed Medical Devices Description No Information Available Encounters Type Date Location Provider Dx Diagnosis Office Visit 12/01/2018 [facility] Harsha Lyle M.D. J34.2 Deviated nasal 12:00p septum J34.3 Hypertrophy of nasal turbinates R06.83 Snoring J35.1 Hypertrophy of tonsils Assessments Date Code Description Provider 02/07/2019 J34.2 Deviated nasal septum Tramaine Pal MD 02/07/2019 J34.2 Deviated nasal septum Harsha [...] Description No Information Available Referrals Refer to Dr Reason for Referral Status Appt Date Harsha Lyle M.D. NO AUTH REQ PER LETTER Created [address] [place], [place] [id number] [phone]
[2019-04-05 18:48] VITALS: BP 133/72
== END 2019-04-05 18:46 | disposition home or self-care (01) ==
LOC: ED 15:13
DX: R07.89 Other chest pain (principal); K21.9 Gastro-esophageal reflux disease without esophagitis; Z87.891 Personal history of nicotine dependence; Z79.899 Other long term (current) drug therapy
CPT/HCPCS: 36415; 71046; 80053; 84484; 85025; 85610; 93005; 96372; 99282; J1885